=== PATIENT | female | born 1945 | race African-American/Black ===

== ENCOUNTER 2016-12-02 15:28 | Emergency (ER) | payer BC ==
[~2016-12-02] VITALS: Ht 157.5 cm; Wt 83.9 kg
--- NOTE | 2016-12-02 16:11 | RAD ---
Right shoulder, 3 views, 12/02/2016: History: Shoulder pain No fracture or dislocation is identified. There is minimal subacromial spurring. There is a tiny tendinous calcification along the superior margin of the greater tuberosity. IMPRESSION: 1. Minimal degenerative change. 2. No acute bony abnormality is detected.
[2016-12-02 16:35] VITALS: BP 153/70
--- NOTE | 2016-12-02 16:50 | PHYS DOC ---
Past Medical History Past Medical History: High Cholesterol, Hypertension Past Surgical History: Other Additional Past Surgical Histo: ankle sx, lap band Alcohol Use: None Drug Use: None Adult General Chief Complaint Chief Complaint: SHOULDER INJURY HPI HPI Patient is a 71 year old female who presents with right shoulder pain. Patient reports 3 week history of intermittent pain with movement of her right shoulder. She states most of the time she feels perfectly well but certain sudden movements elicit pain. She denies any associated chest pain or shortness of breath. No history of fall or trauma. She is left-handed. She took Aleve before coming to the emergency department today. Review of Systems Review of Systems Constitutional: Denies fever or chills HENT: Denies nasal congestion or sore throat Respiratory: Denies cough or shortness of breath Cardiovascular: Denies chest pain GI: Denies abdominal pain, nausea, vomiting Musculoskeletal: Reports shoulder pain Integument: Denies rash Neurologic: Denies headache, focal weakness or sensory changes Physical Exam Physical Exam Constitutional: Obese, no acute distress, non-toxic appearance. HENT: Normocephalic, atraumatic, bilateral external ears normal, oropharynx moist, nose normal. Eyes: conjunctiva normal, no discharge. Cardiovascular: no edema. Lungs & Thorax: no respiratory distress. Abdomen: nondistended. Skin: Warm, dry, no erythema, no rash. Extremities: Right shoulder no swelling or deformity, no erythema or warmth, no focal bony tenderness with palpation over the shoulder, elbow, or wrist. Able to fully abduct & forward flex, limited ROM & pain elicited with internal rotation. Radial pulse 2+. Radial/median/ulnar nerve sensory and motor function intact, axillary nerve sensation intact Neurologic: Alert and oriented X 3, no focal deficits noted. Psychologic: Affect normal, judgement normal, mood normal. Current Patient Data Vital Signs Vital Signs Date Time Temp Pulse Resp B/P (MAP) Pulse Ox O2 Delivery O2 Flow Rate FiO2 12/02/16 16:35 153/70 (97) 12/02/16 15:55 98.1 77 20 100 Room Air 98.1 EKG EKG [] Radiology/Procedures Radiology/Procedures PROCEDURE: SHOULDER 2+V RIGHT Right shoulder, 3 views, 12/02/2016: History: Shoulder pain No fracture or dislocation is identified. There is minimal subacromial spurring. There is a tiny tendinous calcification along the superior margin of the greater tuberosity. IMPRESSION: 1. Minimal degenerative change. 2. No acute bony abnormality is detected. DICTATED and SIGNED BY: TAMY GODOY MD DATE: 12/02/161606[] Course & Med Decision Making Course & Med Decision Making Pertinent Labs and Imaging studies reviewed. (See chart for details) The patient presents with atraumatic shoulder pain. X-ray shows arthritis and calcifications. No acute traumatic injury. Recommend continued supportive care with range of motion exercises, heat, ibuprofen or naproxen. Follow-up with Dr. Kam in the orthopedic clinic if symptoms persist in one to 2 weeks. Return to the emergency department for signs of septic arthritis, neurovascular compromise, chest pain, any otherwise worsening condition. Discharged home in stable condition. [] Dragon Disclaimer Dragon Disclaimer This electronic medical record was generated, in whole or in part, using a voice recognition dictation system. Departure Departure Impression: Primary Impression: Shoulder pain Disposition: 01 HOME, SELF-CARE Condition: STABLE Referrals: THERESA BLANCHARD Jr, MD (PCP) ARLINE KAM MD Patient Instructions: Shoulder Pain, [id number] Additional Instructions: You were seen in the emergency department today for shoulder pain. Your x-ray showed arthritis. Please rest, do range of motion exercises 3 times daily like we discussed, apply heating pad, take naproxen for pain, follow up with in the orthopedic clinic in one to 2 weeks. Return to the emergency department for numbness or weakness in your arm, hot/red/swollen arm, any otherwise worsening condition. TERI DASH MD Dec 02, 2016 16:50
== END 2016-12-02 16:56 | disposition home or self-care (01) ==
LOC: ER 15:28
DX: M25.511 Pain in right shoulder (principal); E78.00 Pure hypercholesterolemia, unspecified; I10 Essential (primary) hypertension; Z98.84 Bariatric surgery status
CPT/HCPCS: 73030; 99284

== ENCOUNTER → 2021-05-30 | Day surgery (SDC) | payer MEDICARE ==
[~2021-05-30] VITALS: Ht 157.5 cm; Wt 88.6 kg
[~2021-05-30] MED LIST: ESTR0.5T PO; GABA-585 PO; IV RINGERS,LACTATED 1000ML 1,000 ML IV SCH; LOSA-73 PO; TRIA1CAP3 PO
[2021-05-30 07:12] VITALS: BP 183/76
--- NOTE | 2021-05-30 08:17 | CONS ---
DATE OF CONSULTATION: 05/30/2021 UPDATED HISTORY AND PHYSICAL REASON: Positive fecal immunochemical test. REFERRING PHYSICIAN: Dr. Ayaka Murray. HISTORY OF PRESENT ILLNESS: A 75-year-old female with past medical history is significant for hypertension, seen for colonoscopy with positive FIT test. Previous one was performed in 2010 without abnormality. She has no diarrhea or constipation. Weight and appetite are stable. No melena and/or hematochezia noted with positive FIT test. She requests further evaluation. PAST MEDICAL HISTORY: Significant for hypertension and neuropathy. ALLERGIES: None. MEDICATIONS: Include Estradiol, gabapentin, losartan, triamterene, hydrochlorothiazide. FAMILY HISTORY: Significant for hypertension with her brother and mother. MO with her father. Diabetes in the father. SOCIAL HISTORY: She is a former smoker, social drinker. PAST SURGICAL HISTORY: Significant for tonsillectomy, thyroidectomy, eye surgery, and wrist surgery. REVIEW OF SYSTEMS: Per records. PHYSICAL EXAMINATION: GENERAL: Reveals a well-nourished, well-developed female who is alert, cooperative, in no acute distress. VITAL SIGNS: Temperature 97.9, pulse 87, respiratory rate 20. LUNGS: Clear. CARDIOVASCULAR: Reveals an S1, S2, without S3, S4 or appreciable murmur. ABDOMEN: Reveals a soft abdomen, normal bowel sounds, without appreciable hepatosplenomegaly. LUNGS: Clear. IMPRESSION: Positive fecal immunochemical test. Differential includes polyps, cancer, AVMs, false positive. Therefore, I recommend a colonoscopy. Risks and benefits of procedure have been previously discussed. The patient understands perforation and is willing to proceed at this time. ALFREDO/ANDEREA DR: Aminata TID: [id number]
[2021-05-30 08:24] VITALS: BP 123/60
== END | disposition home or self-care (01) ==
LOC: SURG 06:50
PROVIDERS: ATTEND Internal Medicine Gastroenterology
DX: R19.5 Other fecal abnormalities (principal); K64.0 First degree hemorrhoids; K57.30 Diverticulosis of large intestine without perforation or abscess without bleeding; K63.89 Other specified diseases of intestine; I10 Essential (primary) hypertension; E78.00 Pure hypercholesterolemia, unspecified; M19.90 Unspecified osteoarthritis, unspecified site; Z87.891 Personal history of nicotine dependence; Z90.710 Acquired absence of both cervix and uterus; Z98.890 Other specified postprocedural states; Z79.899 Other long term (current) drug therapy; Z82.49 Family history of ischemic heart disease and other diseases of the circulatory system; Z83.3 Family history of diabetes mellitus
CPT/HCPCS: 45378